=== PATIENT | female | born 1990 | race Caucasian/White ===

== ENCOUNTER 2020-06-17 06:18 | Inpatient (IN) | payer OTHER, BC, SELFPAY ==
[2020-06-17] VITALS (215 sets, daily range): BP systolic 51–141; BP diastolic 22–91; PULSE 68–136; TEMP 36.6–37.2; O2SAT 89–100; BMI 38.7
[2020-06-17 07:26] LABS: Basophils Percent Auto 0.2 % (0.2-1.2); Eosinophils Percent Auto 0.4 % (0-4.4); Hematocrit 32.3 % (37.0-47.0); Hemoglobin 10.6 g/dL (12.0-15.0); Immature Granulocyte Absolute 0.06 K/mm3 (0.00-0.031); Immature Granulocyte Percent A 0.6 % (0-0.5); Lymphocytes Absolute Auto 2.14 K/mm3 (0.9-3.2); Lymphocytes Percent Auto 21.9 % (18.3-44.2); Mean Corpuscular HGB Conc 32.8 g/dl (32-36); Mean Corpuscular Hemoglobin 27.2 pg (26-34); Mean Corpuscular Volume 82.8 fl (80-100); Mean Platelet Volume 11.4 fl (7.4-10.4); Monocytes Absolute Auto 0.5 K/mm3 (0.1-0.6); Monocytes Percent Auto 4.9 % (2.6-8.5); Platelet Count Result 181 k/mm3 (150-375); Red Cell Distribution Width 13.8 % (11.5-14.5); White Blood Count 9.8 K/mm3 (4.5-10.0)
[2020-06-17] MEDS: LACTATED RINGERS 1,000 ML 125 ML IV CONT ×3 (07:34→18:39)
[2020-06-17] MEDS: OXYTOCIN 30 UNITS/NS 500 ML 30 UNITS/500 ML BAG 6 UNITS IV CONT (07:36)
--- NOTE | 2020-06-17 08:06 | WPDOBADMIT ---
Obstetrics - Admit Note Admission Note: record reviewed. No pertinent additions to the history and/or any subsequent changes in the physical findings that are not consistent with the expected course of the were found. EIDOC Rueda /-3 attempt at AROM Additions to the history and/or subsequent changes in the physical findings follow. None.
[2020-06-17 08:19] LABS: HIV 1/2 Ab P24 Ag Result Negative (Negative)
--- NOTE | 2020-06-17 08:28 | WPDANESEPP ---
Anes - Eval Pre Procedure Procedure: labor epidural Date/Time: 06/17/20 08:28 Preop Diagnosis: pain during labor Pre Op Diagnosis: Induction of Labor Patient Data Age: 30 Gender: F Height: Weight: Last Vital Signs Pulse 77 06/17/20 08:15 BP 114/68 06/17/20 08:15 Allergies Allergy/AdvReac Type Severity Reaction Status Date / Time No Known Allergies Allergy Verified 05/24/20 15:34 Home Medications Medication Instructions Recorded Confirmed Type aspirin [Aspirin Low Dose] 162 mg PO DAILY 05/24/20 05/24/20 History diphenhydramine HCl [Benadryl] 25 mg PO HS PRN 05/24/20 05/24/20 History omeprazole 20 mg PO DAILY 05/24/20 05/24/20 History prenat.vits,andre,ulv-nvnl-drihy 1 tablet PO DAILY 05/24/20 05/24/20 History [ #2] Laboratory Tests 06/17/20 06/17/20 06/17/20 07:14 07:14 07:14 WBC 9.8 K/mm3 K/mm3 (4.5-10.0) RBC 3.90 M/mm3 L M/mm3 (4.2-5.4) Hgb 10.6 g/dL L g/dL (12.0-15.0) Hct 32.3 % L % (37.0-47.0) MCV 82.8 fl fl (80-100) MCH 27.2 pg pg (26-34) MCHC 32.8 g/dl g/dl (32-36) RDW 13.8 % % (11.5-14.5) Plt Count 181 k/mm3 k/mm3 (150-375) MPV 11.4 fl H fl (7.4-10.4) Immature Gran % (Auto) 0.6 % H % (0-0.5) Neut % (Auto) 72.0 % % (45.5-73.1) Lymph % (Auto) 21.9 % % (18.3-44.2) Lares % (Auto) 4.9 % % (2.6-8.5) Eos % (Auto) 0.4 % % (0-4.4) Baso % (Auto) 0.2 % % (0.2-1.2) Lymph # (Auto) 2.14 K/mm3 K/mm3 (0.9-3.2) Lares # (Auto) 0.5 K/mm3 K/mm3 (0.1-0.6) Eos # (Auto) 0.0 K/mm3 K/mm3 (0-0.3) Baso # (Auto) 0.0 K/mm3 K/mm3 (0.0-0.1) Abs Immat Gran (auto) 0.06 K/mm3 H K/mm3 (0.00-0.031) Absolute Neuts (auto) 7.0 K/mm3 H K/mm3 (1.3-6.7) Absolute Nucleated RBC 0.0 K/mm3 K/mm3 (0.0-0.012) Nucleated RBC % 0.0 % % (0.0-0.2) RPR Pending Hepatitis C Ab Screen HIV 1&2 Ab/P24 Ag 4thGn Negative (Negative) 06/17/20 07:14 WBC RBC Hgb Hct MCV MCH MCHC RDW Plt Count MPV Immature Gran % (Auto) Neut % (Auto) Lymph % (Auto) Lares % (Auto) Eos % (Auto) Baso % (Auto) Lymph # (Auto) Lares # (Auto) Eos # (Auto) Baso # (Auto) Abs Immat Gran (auto) Absolute Neuts (auto) Absolute Nucleated RBC Nucleated RBC % RPR Hepatitis C Ab Screen Pending HIV 1&2 Ab/P24 Ag 4thGn Patient hx anesthesia problems: none Family hx anesthesia problems: none PMFSH Family History Family History Father Colon cancer Grandparent Colon cancer Diabetes mellitus Rectal adenocarcinoma FH: kidney cancer Hypertension Skin cancer Mother Acute myocardial infarction Diabetes type 2, uncontrolled Other Parents Social History Social History Smoking status: Never smoker Substance use: never Spiritual care concerns: No Exam Day of Procedure 06/17/20 08:28 Patient weight: normal Heart: regular rate and rhythm Lungs: clear to auscultation and normal air movement Neurological: alert and oriented
[2020-06-17 08:46] LABS: Hepatitis C Virus Antibody Negative (Negative)
[2020-06-17] MEDS: ONDANSETRON INJ 4 MG/2 ML VIAL IV PUSH ×2 (12:22→18:39)
[2020-06-17] MEDS: fentaNYL CITRATE INJ (*CRX) 100 MCG/2 ML VIAL IV PUSH (12:22)
[2020-06-18] VITALS (88 sets, daily range): BP systolic 79–133; BP diastolic 40–112; PULSE 33–152; RESP 13–20; TEMP 36.3–37.5; O2SAT 80–100
[2020-06-18] MEDS: ONDANSETRON INJ 4 MG/2 ML VIAL IV PUSH (00:21)
--- NOTE | 2020-06-18 02:40 | PM.IMHP ---
H&P: HPI History of Present Illness Date/Time: 06/18/20 02:40 Chief Complaint: elective induction of labor, failure to progress Narrative: Alayna Steele is a 30 year old female who presented today for elective induction of labor, Pt has been complete and pushed for almost 2 hours without descent. 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 Afebrile Review of Systems Review of Systems: All systems reviewed & are unremarkable except as noted in HPI and below PMFSH Family History Family History Father Colon cancer Grandparent Colon cancer Diabetes mellitus Rectal adenocarcinoma FH: kidney cancer Hypertension Skin cancer Mother Acute myocardial infarction Diabetes type 2, uncontrolled Other Parents Social History Social History Smoking status: Never smoker Substance use: never Spiritual care concerns: No Meds Home Medications and Allergies Home Medications Medication Instructions Recorded Confirmed Type aspirin [Aspirin Low Dose] 162 mg PO DAILY 05/24/20 05/24/20 History diphenhydramine HCl [Benadryl] 25 mg PO HS PRN 05/24/20 05/24/20 History omeprazole 20 mg PO DAILY 05/24/20 05/24/20 History prenat.vits,andre,jot-yuri-wwzat 1 tablet PO DAILY 05/24/20 05/24/20 History [ #2] Allergies Allergy/AdvReac Type Severity Reaction Status Date / Time No Known Allergies Allergy Verified 05/24/20 15:34 Vital Signs Vital Signs - 24 hr 06/17/20 07:05 06/17/20 07:15 06/17/20 07:30 Temperature Pulse Rate 112 H 96 104 H Blood Pressure 120/88 105/75 118/74 Pulse Oximetry 06/17/20 07:46 06/17/20 08:00 06/17/20 08:15 Temperature Pulse Rate 93 90 77 Blood Pressure 114/60 111/66 114/68 Pulse Oximetry 06/17/20 08:30 06/17/20 08:46 06/17/20 09:00 Temperature 36.8 C Pulse Rate 90 90 91 Blood Pressure 110/63 108/63 109/70 Pulse Oximetry 06/17/20 09:17 06/17/20 09:30 06/17/20 09:46 Temperature Pulse Rate 80 77 82 Blood Pressure 92/68 L 96/55 L 104/62 Pulse Oximetry 06/17/20 10:16 06/17/20 10:30 06/17/20 11:01 Temperature 36.8 C Pulse Rate 89 86 122 H Blood Pressure 116/70 109/68 92/68 L Pulse Oximetry 06/17/20 11:15 06/17/20 11:31 06/17/20 11:45 Temperature Pulse Rate 82 87 88 Blood Pressure 121/71 107/65 112/66 Pulse Oximetry 06/17/20 12:01 06/17/20 12:15 06/17/20 12:30 Temperature 36.8 C Pulse Rate 108 H 90 92 Blood Pressure 70/48 L 108/73 112/63 Pulse Oximetry 06/17/20 12:45 06/17/20 13:00 06/17/20 13:15 Temperature Pulse Rate 74 78 88 Blood Pressure 117/67 111/71 107/70 Pulse Oximetry 06/17/20 13:26 06/17/20 13:27 06/17/20 13:29 Temperature Pulse Rate 97 91 Blood Pressure 110/91 H 112/65 Pulse Oximetry 100 06/17/20 13:30 06/17/20 13:31 06/17/20 13:33 Temperature Pulse Rate 86 98 Blood Pressure 113/62 105/76 Pulse Oximetry 100 06/17/20 13:36 06/17/20 13:38 06/17/20 13:41 Temperature Pulse Rate 97 114 H Blood Pressure 121/71 137/81 141/68 H Pulse Oximetry 100 100 06/17/20 13:44 06/17/20 13:46 06/17/20 13:48 Temperature Pulse Rate 80 92 80 Blood Pressure 109/60 108/63 112/58 L Pulse Oximetry 100 06/17/20 13:51 06/17/20 13:53 06/17/20 13:56 Temperature Pulse Rate 81 90 97 Blood Pressure 107/52 L 108/54 L 105/53 L Pulse Oximetry 100 100 06/17/20 13:58 06/17/20 14:00 06/17/20 14:01 Temperature Pulse Rate 89 102 H Blood Pressure 107/63 111/58 L Pulse Oximetry 100 06/17/20 14:03 06/17/20 14:05 06/17/20 14:06 Temperature Pulse Rate 95 84 Blood Pressure 107/60 109/58 L Pulse Oximetry 100 06/17/20 14:08 06/17/20 14:10 06/17/20 14:11 Temperature Pulse Rate 72 83 Blood Pressure 96/64 L 105/55 L Pulse Oximetry 100 06/17/20 14:
--- NOTE | 2020-06-18 03:47 | WPDANESEFPP ---
Anes - Eval Final PreProcedure Day of Procedure 06/18/20 03:47 Patient weight: obese Heart: regular rate and rhythm Lungs: clear to auscultation and normal air movement Airway: Mallampati scale class II Neurological: alert and oriented Last oral intake: >/= 8 hours ASA classification: II Emergent: no Anesthetic plan: proceed Anesthesia type and monitoring: regional epidural and standard monitoring Informed Consent: The patient's anesthetic plan and its attendant risks and benefits were discussed with the patient/family/POA. Questions were solicited and answers provided to the satisfaction of the patient/family/POA.
[2020-06-18] MEDS: ceFAZolin 2 GM/D5W 50 ML 2 GM/50 ML BAG IVPB (04:07)
--- NOTE | 2020-06-18 04:54 | P.OP_ITS ---
Procedure Note - Detailed Date of procedure: 06/18/20 Pre-op diagnosis: Induction of Labor failure to descend Post-op diagnosis: same (malposition of the head) Procedure performed: low-transverse delivery Description of procedure: The patient was taken the operating room. She was prepped and draped in the dorsal supine position with leftward tilt after induction of spinal anesthetic. When anesthesia was found to be adequate a low- transverse skin incision was made and carried down to the level the fascia with the knife. The fascial incision was made at the midline with a scalpel. The fascial incision was extended laterally with Rao scissors. The fascia was tented upward superior and inferior with Yoni clamps. The rectus muscles were dissected off bluntly. The rectus muscles at the midline. The preperitoneal fat was dissected bluntly at the superior aspect of the separate the rectus muscles. The peritoneal cavity was entered bluntly in the same area. The peritoneal incision was extended superior and inferior with good visualization of bladder. Bladder blade was inserted. A low-transverse incision was made on the uterus with the scalpel. It was carried down the level of the amniotic cavity with a knife. The amniotic cavity bluntly. The uterine incision was made laterally with blunt traction. The infant was delivered. The cord was clamped and cut. The infant was handed off to waiting pediatric staff. Cord bloods were obtained. The placenta was removed manually. The uterus was exteriorized. Uterus cleared of all clots and debris. Uterus closed in 0 Vicryl in a running locked fashion. An imbricating layer of 0 Vicryl was also placed on the to bolster the closure. The uterus was returned to the abdomen. The gutters were cleared of all clots and debris. The fascia was closed 0 Vicryl in a running fashion. Subcutaneous tissue was irrigated and bleeding areas were cauterized. The skin was closed with subcuticular absorbable sarmad. The incision was covered with derma stephens. The patient tolerated the procedure well. She was taken recovery room stable condition. Sponge, lap, needle counts were correct x2. Anesthesia: spinal Surgeon: Colt Olvera MD Drains: No Packing: No Pathology: none sent Complications: No immediate complications Condition: stable Disposition: floor Findings: Normal maternal anatomy. Average size with normal Apgars. LOP head
[2020-06-18] MEDS: DEXTROSE 5%/0.45% SOD CHL 1,000 ML 125 ML IV CONT (11:38)
--- NOTE | 2020-06-18 14:34 | OBPPTRN ---
Addendum entered by Dixie Dai RN 06/18/20 14:34: @ 0751 Original Note: Patient transferred to post room #288 via stretcher. Support person present. Oriented to unit, room, information board, rooming in, admission packet and security measures. Patient verbalizes understanding.
[2020-06-18] MEDS: HYDROcodone/acetaminophen (*CRX) 5-325 MG TABLET 1 TAB PO (17:32)
[2020-06-18] MEDS: DOCUSATE SODIUM 100 MG CAPSULE PO (17:34)
[2020-06-18] MEDS: IBUPROFEN 600 MG TABLET PO (19:35)
[2020-06-19 01:00] VITALS: BP 94/56; PULSE 84; RESP 16; TEMP 36.4
[2020-06-19 04:00] VITALS: BP 102/63; PULSE 91; RESP 16; TEMP 36.2
[2020-06-19] MEDS: HYDROcodone/acetaminophen (*CRX) 5-325 MG TABLET 1 TAB PO ×4 (04:14→18:40)
[2020-06-19] MEDS: IBUPROFEN 600 MG TABLET PO ×2 (04:14→18:41)
--- NOTE | 2020-06-19 04:44 | PM.OBPNVD ---
OB - PN: Subj Subjective Date/time seen: 06/19/20 04:44 Patient comments: no complaints, pain well controlled, tolerating diet and flatus present baby status: doing well OB - PN: Obj Data Labs CBC & Chem 7: 06/17/20 07:14 OB - PN A/P Plan day: 1 Plan: routine care Time Spent With Patient Time: Total time spent is greater than 50% in coordination of care (as documented) at patient's floor/unit and/or counseling patient: Time with patient: less than 15 minutes Review of Systems Review of Systems: All systems reviewed & are unremarkable except as noted in HPI and below Exam Narrative: Exam Narrative: Fundus firm. Vaginal flow controlled. Incision dry and intact. Negative homans. No redness, warmth, or pain of lower ext. Const: General: comfortable Chest: Breast/axilla inspection: normal inspection of the breasts Resp: Effort & Inspection: normal respiratory effort Auscultation: clear to auscultation bilaterally Cardio: Rate: regular rate GI: GI Palp: Yes Soft to palpation Psych: Appearance: grossly normal Affect: normal affect Attitude: cooperative Thought content: Yes Normal thought content present Judgement: Good judgement present (Psych)
[2020-06-19 05:43] LABS: Basophils Percent Auto 0.1 % (0.2-1.2); Eosinophils Absolute Auto 0.1 K/mm3 (0-0.3); Eosinophils Percent Auto 0.5 % (0-4.4); Hematocrit 25.8 % (37.0-47.0); Hemoglobin 8.5 g/dL (12.0-15.0); Immature Granulocyte Absolute 0.11 K/mm3 (0.00-0.031); Immature Granulocyte Percent A 0.7 % (0-0.5); Lymphocytes Absolute Auto 2.09 K/mm3 (0.9-3.2); Lymphocytes Percent Auto 12.5 % (18.3-44.2); Mean Corpuscular HGB Conc 32.9 g/dl (32-36); Mean Corpuscular Hemoglobin 27.7 pg (26-34); Mean Platelet Volume 11.1 fl (7.4-10.4); Monocytes Absolute Auto 0.9 K/mm3 (0.1-0.6); Monocytes Percent Auto 5.4 % (2.6-8.5); Neutrophils Absolute Auto 13.5 K/mm3 (1.3-6.7); Neutrophils Percent Auto 80.8 % (45.5-73.1); Platelet Count Result 151 k/mm3 (150-375); Red Blood Count 3.07 M/mm3 (4.2-5.4); White Blood Count 16.8 K/mm3 (4.5-10.0)
--- NOTE | 2020-06-19 07:48 | WPDANLDNPN2 ---
Anes-Prog Note L&D-Neuraxial Date/Time: 06/19/20 07:48 Neuraxial medications: epidural PF morphine Opiod-related complaints: none Patient feedback: Patient satisfied with post-operative pain management.
--- NOTE | 2020-06-19 07:48 | WPDANLDPN2 ---
Anes-Prog Note L&D Date/Time: 06/19/20 07:48 Comfortable throughout: section Neuraxial method: epidural Epidural/Spinal procedure site: clean & non-tender Neuro status: Neuro function grossly intact. Cardiovascular status: normal Respiratory status: normal Airway patency: baseline Mental status: baseline Post-Op hydration status: normal Vital Signs: Last Vital Signs Temp 36.2 C L 06/19/20 04:00 Pulse 91 06/19/20 04:00 Resp 16 06/19/20 04:00 BP 102/63 06/19/20 04:00 Pulse Ox 99 06/18/20 19:19 Pain score (VAS): 2 I/O: Intake & Output 06/18/20 06/18/20 06/19/20 15:59 23:59 07:59 Intake Total 1000 800 Output Total 450 1150 1000 Balance -450 -150 -200 Post-procedural complaints: none Patient feedback: Patient satisfied with anesthetic care.
[2020-06-19 08:55] VITALS: BP 110/69; PULSE 92; RESP 18; TEMP 36.1; O2SAT 99
[2020-06-19] MEDS: MULTIVIT/MIN/PREN/FOL AC/IRON TABLET 1 TAB PO (08:55)
[2020-06-19] MEDS: DOCUSATE SODIUM 100 MG CAPSULE PO ×2 (08:55→16:17)
[2020-06-19] MEDS: POLYSACCHARIDE IRON COMPLEX 150 MG CAPSULE PO ×2 (08:55→16:17)
[2020-06-19 09:03] LABS: Rapid Plasma Reagin Reactive (NonReactive)
[2020-06-19] MEDS: PANTOPRAZOLE SOD SESQUIHYDRATE 20 MG TAB PO (13:24)
[2020-06-19] MEDS: ASPIRIN 81 MG ENTERIC TABLET 162 MG PO (13:25)
[2020-06-19] MEDS: SIMETHICONE 80 MG TAB.CHEW PO (18:42)
[2020-06-19 19:24] VITALS: BP 109/62; PULSE 79; RESP 18; TEMP 37.3; O2SAT 100
[2020-06-20] MEDS: IBUPROFEN 600 MG TABLET PO ×4 (00:52→22:41)
[2020-06-20] MEDS: SIMETHICONE 80 MG TAB.CHEW PO ×5 (00:52→22:41)
[2020-06-20] MEDS: PANTOPRAZOLE SOD SESQUIHYDRATE 20 MG TAB PO (07:54)
[2020-06-20] MEDS: POLYSACCHARIDE IRON COMPLEX 150 MG CAPSULE PO ×3 (07:54→16:14)
[2020-06-20] MEDS: MULTIVIT/MIN/PREN/FOL AC/IRON TABLET 1 TAB PO (07:54)
[2020-06-20] MEDS: DOCUSATE SODIUM 100 MG CAPSULE PO ×2 (07:54→16:15)
[2020-06-20] MEDS: ASPIRIN 81 MG ENTERIC TABLET 162 MG PO (07:54)
[2020-06-20 08:00] VITALS: BP 132/56; PULSE 75; RESP 18; TEMP 36.6
--- NOTE | 2020-06-20 08:09 | P.PNOB_ITS ---
OB - PN: Subj Subjective Date/time seen: 06/20/20 08:09 Patient comments: no complaints, pain well controlled, incisional pain, tolerating diet and flatus present OB - PN: Obj Data Labs CBC & Chem 7: 06/19/20 05:29 Labs: Laboratory Results - last 24 hr 06/17/20 07:14 RPR Reactive A OB - PN A/P Plan day: 2 Plan: routine care Comments: POD#2 LTCS - no problems, Time Spent With Patient Time: Total time spent is greater than 50% in coordination of care (as d ocumented) at patient's floor/unit and/or counseling patient: Exam Const: General: comfortable, no acute distress and alert Resp: Effort & Inspection: normal respiratory effort Auscultation: no crackles, no rales and no rhonchi Cardio: Rate: regular rate Heart sounds: no click, no murmurs and no rubs GI: Inspection: non-distended GI Palp: No Tenderness to palpation present (GI) Auscultation: normal bowel sounds Other: Incision - CDI Extrem: General: normal to inspection, no pedal edema and no calf tenderness
--- NOTE | 2020-06-20 09:05 | PC.NURSE ---
Mother called out for assist with feeding. Consulted with patient, reports has had some difficulties with latching and is using the nipple shield for some feeding. Mother has nipple discomfort with latch during most of the feeding. Both nipples are reddened and scabbed bilat., nipple care reviewed and lanolin provided. Advised warm moist heat for 10 minutes then use gel pads provided. Discussed infant weight loss and ICP suggestion to supplement 15-20 mls EBM/formula after each feeding. Mother is upset with supplementation, reviewed this may be short term and incorrect latch may impact infant intake. Suggested working with deep latch and pumping. Reviewed feeding cues, frequencies, duration of feedings, feeding elimination flow sheet, and signs of adequate intake. Demonstrated stimulation techniques to wake for feeding. Assisted with to breast. Reviewed positioning/alignment in cross cradle, holding breast in U hold and guided asymmetrical latch on. was able to latch correctly within a few attempts without shield. Infant nursed eagerly, with steady draws and frequent swallowing noted. Reviewed signs of a correct latch, effective nursing and suck swallow ratio. Infant was able to maintain latch. Mother reported tenderness at times, had slipped to shallow latch. Demonstrated how to adjust latch more deeply while feeding. Mother quickly reports she can feel is latched more deeply and has minimal tenderness. Suggested to stimulate while feeding to keep infant awake and nursing effectively for increased stimulation and increased intake. Instructed mother to call out for RN assistance if she is unable to latch for feeding or she has discomfort with nursing. Instructed feeding should be initiated three hours from start of last feeding or if feeding cues are noted before. Mother voiced understanding of information shared.
--- NOTE | 2020-06-20 09:45 | PC.NURSE ---
Breast pump provided due to latch issues and weight loss. Instructions given on breast pump care and usage, pumping schedule, nipple care, and collection and storage of breast milk. Encouraged saih-[id number], breast massage and manual expression to stimulate supply. Assessed patient for correct flange size, placement and draw. Patient verbalizes and demonstrates understanding of instructions.
--- NOTE | 2020-06-20 12:10 | PC.NURSE ---
Mother called out for assist with feeding. Demonstrated stimulation techniques to wake for feeding. Assisted with infant to breast, reviewing pillow for support. Reviewed positioning/alignment in cross cradle, holding breast in U hold and guided asymmetrical latch on. was able to latch correctly within a few attempts, without shield. Infant nursed eagerly, with steady draws and frequent swallowing noted. Reviewed signs of a correct latch, effective nursing and suck swallow ratio. was able to maintain latch. Mother reported tenderness at times, had slipped to shallow latch. Demonstrated how to adjust latch more deeply while feeding. Mother quickly reports she can feel is latched more deeply and has minimal tenderness. Suggested to stimulate infant while feeding to keep awake and nursing effectively for increased stimulation and increased intake. Instructed mother to call out for RN assistance if she is unable to latch infant for feeding or she has discomfort with nursing. Instructed feeding should be initiated three hours from start of last feeding or if feeding cues are noted before. Mother voiced understanding of information shared. FOB will supplement after feeding and mother will pump. Advised to give EBM as part of next feeding.
--- NOTE | 2020-06-20 14:04 | PC.NURSE ---
Patient viewed the discharge video Mother & Baby Care, The First Two Weeks . Patient was given the opportunity and encouraged to ask questions. Patient verbalized understanding of information shared and has been given the mother/baby guide for home reference.
[2020-06-20] MEDS: TETANUS,DIPHTHERIA,AC PERTUSSIS ADULT (0.5 ML) BOOSTRIX IM (19:00)
[2020-06-20 21:11] VITALS: BP 119/73; PULSE 87; RESP 18; TEMP 37.1
--- NOTE | 2020-06-21 08:00 | PM.OBPNVD ---
OB - PN: Subj Subjective Date/time seen: 06/21/20 08:00 Patient comments: no complaints, pain well controlled, incisional pain, tolerating diet and flatus present OB - PN: Obj Data Labs CBC & Chem 7: 06/19/20 05:29 OB - PN A/P Plan day: 2 Plan: routine care Comments: POD#2 LTCS - no problems, d/c Time Spent With Patient Time: Total time spent is greater than 50% in coordination of care (as documented) at patient's floor/unit and/or counseling patient: Exam Const: General: comfortable, no acute distress and alert Resp: Effort & Inspection: normal respiratory effort Auscultation: no crackles, no rales and no rhonchi Cardio: Rate: regular rate Heart sounds: no click, no murmurs and no rubs GI: Inspection: non-distended GI Palp: No Tenderness to palpation present (GI) Auscultation: normal bowel sounds Other: Incision - CDI Extrem: General: normal to inspection, no pedal edema and no calf tenderness
--- NOTE | 2020-06-21 08:01 | PM.OBDSVD ---
DS: Admitting Diagnosis Admitting Diagnosis Admitting Diagnosis: term DS: Discharge Diagnosis Discharge Diagnosis (1) delivery delivered: Code(s): O82 - Encounter for delivery without indication Status: Acute OB - DS: Summary OB Procedures : Ultrasound OB Procedures Intrapartum: OB Procedures: : None Peripartum Data Infant Delivery Method: Section Procedures: Procedures Operation Date: 06/18/20 02:40 Actual Procedures Side Surgeon p Section Colt Olvera MD Time Spent with Patient Time attestation: Total time spent providing and/or coordinating discharge services: DS: Data Data Completed and Pending Pending studies at discharge: Pending at discharge 06/18/20 04:25 Surgical [PTH] Routine Discharge Plan Discharge Attending physician on discharge: Colt Olvera Discharging Clinician: Colt Olvera Patient Disposition: Home, Self-Care Activity: pelvic rest Diet: regular Patient Instructions: Antibiotic Form Stand Alone Forms: General Discharge Information Follow-up/Referrals: Colt Olvera MD [Physician] - Discharge Medications: New hydrocodone-acetaminophen 5-325 mg tablet 1 - 2 tablet PO Q4H PRN (Reason: pain) Qty: 25 RF: 0 Continued aspirin [Aspirin Low Dose] 81 mg Tablet,Delayed Release (Dr/Ec) 162 mg PO DAILY RF: 0 diphenhydramine HCl [Benadryl] 25 mg Capsule 25 mg PO HS PRN (Reason: Insomnia) RF: 0 omeprazole 20 mg Capsule,Delayed Release(Dr/Ec) 20 mg PO DAILY RF: 0 #2 Tablet 1 tablet PO DAILY RF: 0 Date of admission: 06/17/20 06:18 Primary Care Provider: Izzy,Monica Admitting Provider: Colt Olvera Attending physician on admission: Colt Olvera Condition: Stable
--- NOTE | 2020-06-21 08:30 | PC.NURSE ---
Consult with pt., mother reports lost more weight and is now supplementing as much as infant will take after . Mother continues to pump without difficulties or discomfort. Infant will eagerly nipple from bottle. Parents report mother will continue to put infant to breast until her milk is in and then pump and bottle feed. Mother reports feeling stressed with latch and weight loss. Reviewed may be more awake and eagerly latching within a few days, latch may be less stressful and she may be more comfortable when infant begins to gain weight. Mother has a Medela pump for home use.
[2020-06-21 08:45] VITALS: BP 109/63; PULSE 82; RESP 18; TEMP 36.7; O2SAT 100
[2020-06-21] MEDS: PANTOPRAZOLE SOD SESQUIHYDRATE 20 MG TAB PO (08:52)
[2020-06-21] MEDS: SIMETHICONE 80 MG TAB.CHEW PO ×2 (08:52→15:55)
[2020-06-21] MEDS: DOCUSATE SODIUM 100 MG CAPSULE PO ×2 (08:52→15:56)
[2020-06-21] MEDS: IBUPROFEN 600 MG TABLET PO ×2 (08:52→15:56)
[2020-06-21] MEDS: ASPIRIN 81 MG ENTERIC TABLET 162 MG PO (08:52)
[2020-06-21] MEDS: POLYSACCHARIDE IRON COMPLEX 150 MG CAPSULE PO ×2 (08:52→15:56)
[2020-06-21] MEDS: MULTIVIT/MIN/PREN/FOL AC/IRON TABLET 1 TAB PO (08:52)
[2020-06-21 20:00] VITALS: BP 114/68; PULSE 79; PULSE 82; RESP 18; TEMP 36.6; O2SAT 100
[2020-06-22 08:00] VITALS: BP 118/65; PULSE 66; RESP 18; TEMP 36.9; O2SAT 100
--- NOTE | 2020-06-22 08:08 | PM.OBPNVD ---
OB - PN: Subj Subjective Date/time seen: 06/22/20 08:08 Patient comments: no complaints, pain well controlled, incisional pain, tolerating diet and flatus present OB - PN: Obj Data Labs CBC & Chem 7: 06/19/20 05:29 OB - PN A/P Plan day: 3 Plan: routine care, discharge home and other Comments: Incision check in one week. Given precautions Time Spent With Patient Time: Total time spent is greater than 50% in coordination of care (as documented) at patient's floor/unit and/or counseling patient: Exam Const: General: comfortable, no acute distress and alert Resp: Effort & Inspection: normal respiratory effort Auscultation: no crackles, no rales and no rhonchi Cardio: Rate: regular rate Heart sounds: no click, no murmurs and no rubs GI: Inspection: non-distended GI Palp: No Tenderness to palpation present (GI) Auscultation: normal bowel sounds Other: Incision - CDI Extrem: General: normal to inspection, no pedal edema and no calf tenderness
[2020-06-22] MEDS: IBUPROFEN 600 MG TABLET PO (09:07)
[2020-06-22] MEDS: PANTOPRAZOLE SOD SESQUIHYDRATE 20 MG TAB PO (09:07)
[2020-06-22] MEDS: ASPIRIN 81 MG ENTERIC TABLET 162 MG PO (09:07)
[2020-06-22] MEDS: DOCUSATE SODIUM 100 MG CAPSULE PO (09:07)
[2020-06-22] MEDS: MULTIVIT/MIN/PREN/FOL AC/IRON TABLET 1 TAB PO (09:07)
[2020-06-22] MEDS: POLYSACCHARIDE IRON COMPLEX 150 MG CAPSULE PO (09:08)
--- NOTE | 2020-06-22 09:45 | PC.NURSE ---
Consult with pt., mother continue to put to breast for most feedings, mother will pass off to FOB and he will supplement as much as infant desires and mother will pump. Mother is pumping without difficulties/discomfort. Mother's plans are to discontinue putting infant to breast once her milk is in and she will only pump and bottle feed. Mother feels is more awake and eagerly nippling bottle. Reviewed breast pump care and usage, pumping schedule, nipple care, and collection and storage of breast milk. Encouraged [id number], breast massage and manual expression to stimulate supply. Mother is feeding as required and waking infant to feed if needed. Infant is currently meeting outcomes for weight, output, jaundice and feeding frequencies. Mother states she feels confident to continue current feeding plan at home. Reviewed transition to breast milk, signs of adequate intake, and engorgement/relief. Instructed to call ICP if intake/output less than required. Reviewed regular medications mother is taking. Information provided per Shanika. Reviewed community resources on the [employer] website and in the Mom/Baby guide. Information on outpatient services provided. Mother has no further questions at this time.
[2020-06-22 12:11] LABS: Treponema pallidum Ab FTA ABS Reactive (Nonreactive)
--- NOTE | 2020-07-10 09:35 | PM.OBDSVD ---
DS: Admitting Diagnosis Admitting Diagnosis Admitting Diagnosis: term DS: Discharge Diagnosis Discharge Diagnosis (1) delivery delivered: Code(s): O82 - Encounter for delivery without indication Status: Acute (2) Post-op pain: Code(s): G89.18 - Other acute postprocedural pain Status: Acute OB - DS: Summary OB Procedures : None OB Procedures Intrapartum: OB Procedures: : None Peripartum Data Delivery Method: Section Procedures: Procedures Operation Date: 06/18/20 02:40 Actual Procedures Side Surgeon p Section Colt Olvera MD Time Spent with Patient Time attestation: Total time spent providing and/or coordinating discharge services: DS: Data Data Completed and Pending Completed studies during hospitalization: Pending at discharge 06/18/20 04:25 Surgical [PTH] Routine Discharge Plan Discharge Attending physician on discharge: Colt Olvera Consulting providers: Tamara Gray ; Marielena Ventura ; Jarvis Anderson Discharging Clinician: Colt Olvera Patient Disposition: Home, Self-Care Activity: pelvic rest Diet: regular Discharge Instructions: Education: Mom and Baby Guide and Preeclampsia Handout Given to: Mother Follow-Up: Call your delivering provider's office for an appointment to be seen in: 1 Week Mom and baby should come to the [facility] for the follow-up appointment. Appointment Date/Time: June 24, 2020 at 10:00 am What to expect at your follow-up visit: Physical Assessment Call [phone] if you are unable to keep your appointment time. BREAST CARE: * Wear a snug supportive bra. * For engorgement discomfort: Breast Feeding: * Apply warm moist washcloths * Express milk as needed to relieve engorgement * Wear loose clothing * For sore nipples: * Identify correct latch-on * Apply warm moist washcloths before and after nursing * Air dry nipples after nursing * May apply Lansinoh cream to nipples ABDOMINAL INCISION: (if applicable) * Allow incision to air dry * Do NOT use lotions for powders on your incision * When showering, allow soap and water to run over the incision, but do not wash incision EPISIOTOMY/PERINEAL CARE: * Until bleeding stops, use your latasha bottle after urinating * Change your pad frequently throughout the day * You may take sitz baths several times a day (fill your bathtub with warm water and soak for 20 minutes.) Do NOT bathe in the water * No tub baths until seen by your physician - You may shower ACTIVITY: * Rest as much as possible. * Do not exercise or lift anything heavier than your baby (such as laundry or other children.) * Avoid stairs or driving as much as possible. * Do not put anything into the vagina. No douching, tampons, or sexual activity until seen by physician. NOTIFY PHYSICIAN IF YOU HAVE ANY QUESTIONS OR IF ANY OF THE FOLLOWING SYMPTOMS OCCUR: * If your incision becomes red, swollen, or more painful than what you have experienced in the hospital. * If your vaginal bleeding becomes foul smelling. * If your vaginal bleeding becomes more heavy than a period or if your bleeding changes from pink to bright red. However, you may pass an occasional walnut-sized clot once or twice for the first week . * If you experience a sharp, shooting pain in you calves. * If you discover a hard, reddened area on your breast or if you experience flu-like symptoms. DIET: * Eat regular, well-balanced meals. * Drink plenty of fluids daily. If , drink to thirst. Stand Alone Forms: General Discharge Information Follow-up/Referrals: Colt Olvera MD [Physician] - Discharge Medications: New hydrocodone-acetaminophen 5-325 mg tablet 1 - 2 tablet PO Q4H PRN (Reason: pain) Qty: 25 RF: 0 Continued
== END 2020-06-22 13:05 | disposition home or self-care (01) | DRG 788 ==
LOC: ANHLDR 06-18 04:29 → ANHOB2 06-18 07:56
PROVIDERS: Admitting Provider Obstetrics & Gynecology; Visit Provider Obstetrics & Gynecology
PROC: 10D00Z1 Extraction of Products of Conception, Low, Open Approach (ICD-10-PCS; CPT 59514; principal; 2020-06-18 02:40)
DX: O98.12 Syphilis complicating childbirth (principal); Z37.0 Single live birth; Z3A.39 39 weeks gestation of pregnancy; O61.0 Failed medical induction of labor; O36.8330 Maternal care for abnormalities of the fetal heart rate or rhythm, third trimester, not applicable or unspecified; O64.8XX0 Obstructed labor due to other malposition and malpresentation, not applicable or unspecified; O99.214 Obesity complicating childbirth; E66.9 Obesity, unspecified
CPT/HCPCS: 36415; 85025; 86592; 86703; 86780; 86803; 86850; 86900; 86901; 88307; 90715; A9270; G0432; J0690; J1100; J1885; J2274; J2405; J2590; J2704; J2795; J3010; J7120

== ENCOUNTER 2021-02-24 09:36 | Emergency (ER) | payer BC, SELFPAY ==
[2021-02-24 09:49] VITALS: BP 139/96; PULSE 101; RESP 14; TEMP 36.8; O2SAT 98
--- NOTE | 2021-02-24 10:22 | ED.URI ---
HPI - URI/Sore Throat General Chief Complaint: Upper Respiratory Infection Stated Complaint: runny nose cough headahe fatigue Source: patient and RN notes reviewed Mode of arrival: ambulatory History of Present Illness HPI Narrative: This is a 30-year-old female who presents to urgent care with complaints of a headache, stuffy nose, sinus and chest congestion, cough nonproductive that she has had for the last 4 days she also complains of right ear itching. Patient notes that she took [id number] medication for symptoms. The patient denies SOB, CP, palpitation, extremity numbness, lightheadedness, dizziness, constipation, diarrhea, chills, or fever. Related Data Home Medications Medication Instructions Recorded Confirmed omeprazole 20 mg PO DAILY 05/24/20 02/24/21 cetirizine [Zyrtec] 10 mg PO DAILY 02/24/21 02/24/21 estradiol-norgestimate 1 tablet PO DAILY 02/24/21 02/24/21 Allergies Allergy/AdvReac Type Severity Reaction Status Date / Time No Known Allergies Allergy Verified 02/24/21 10:11 Review of Systems Review of Systems: A 14 organ system Review of Systems was performed and pertinent positives included in the HPI, otherwise remaining ROS is negative. [facility] Family History Family History Father Colon cancer Grandparent Colon cancer Diabetes mellitus Rectal adenocarcinoma FH: kidney cancer Hypertension Skin cancer Mother Acute myocardial infarction Diabetes type 2, uncontrolled Other Parents Social History Social History Smoking status: Never smoker Substance use: never Spiritual care concerns: No Exam Narrative: GENERAL: This is a well-nourished, well-developed patient, in no apparent distress. HEAD: normocephalic, atraumatic. EYES: PERRL. Sclera clear/white. Vision is grossly intact. EARS: External ears normal, auditory canals clear and without drainage, TMs normal without perforation. Hearing grossly intact. NOSE: External nose normal with no obvious nasal discharge, nares without redness, no rhinorrhea. THROAT: Mucous membranes moist, posterior pharynx clear. NECK: Neck supple, non-tender without lymphadenopathy, masses or thyromegaly. CARDIOVASCULAR: Regular rate and rhythm without murmurs, gallops, or rubs. RESPIRATORY: Clear to auscultation. Breath sounds equal bilaterally. No wheezes, rales, or rhonchi. GASTROINTESTINAL: Abdomen soft, non-tender, nondistended. Bowel sounds are active. No hepato-splenomegaly, or palpable masses. No guarding. SKIN: warm, intact with no suspicious lesions or rash, good texture and turgor. NEURO: awake, alert, and oriented to person, place and time. There were no obvious focal neurologic abnormalities. Steady gait EXTREMITIES: Normal range of motion. No edema. No calf tenderness. Negative Homans sign bilaterally. BACK: Nontender without deformity or crepitance. No flank tenderness. Course Course Emergency Course: Utilize [id number] medication for symptoms of viral infection Vital Signs Vital signs: Vital Signs Temperature 98.2 F 02/24/21 09:49 Pulse Rate 101 H 02/24/21 09:49 Respiratory Rate 14 02/24/21 09:49 Blood Pressure 139/96 H 02/24/21 09:49 Pulse Oximetry 98 02/24/21 09:49 Temperature 98.2 F 02/24/21 09:49 Pulse Rate 101 H 02/24/21 09:49 Respiratory Rate 14 02/24/21 09:49 Blood Pressure 139/96 H 02/24/21 09:49 Pulse Oximetry 98 02/24/21 09:49 MDM - URI/Sore Throat Differential Diagnosis Differential diagnosis: Likely upper respiratory infection, sinusitis, viral infection, bronchitis and pharyngitis Discharge Plan Discharge Clinical Impression: Viral infection Patient Disposition: Home, Self-Care Condition: Stable Instructions: Antibiotic Form Additional Instructions: What care is needed at home? Ask your doctor what you need to do when you go home.
== END 2021-02-24 10:25 | disposition home or self-care (01) ==
PROVIDERS: Emergency Provider Nurse Practitioner
DX: B34.9 Viral infection, unspecified (principal); Z20.822 Contact with and (suspected) exposure to COVID-19
CPT/HCPCS: 87426; 99213; C9803; G0463

== ENCOUNTER 2021-08-15 09:50 | Outpatient (CLI) | payer BC, SELFPAY ==
[2021-08-15 19:31] LABS: Hematocrit 40.6 % (37.0-47.0); Hemoglobin 12.6 g/dL (12.0-15.0); Mean Corpuscular Hemoglobin 27.6 pg (26-34); Mean Corpuscular Volume 88.8 fl (80-100); Mean Platelet Volume 10.5 fl (7.4-10.4); Platelet Count Result 267 k/mm3 (150-375); Red Blood Count 4.57 M/mm3 (4.2-5.4); Red Cell Distribution Width 14.7 % (11.5-14.5); White Blood Count 7.5 K/mm3 (4.5-10.0)
[2021-08-15 19:38] LABS: Alanine Aminotransferase 29 U/L (4-35); Albumin Level 4.3 g/dL (3.5-5.1); Alkaline Phosphatase 146 U/L (38-126); Anion Gap 8 mmol/L (8-16); Aspartate Amino Transferase 33 U/L (14-36); Bilirubin,Total 0.4 mg/dL (0.2-1.3); Blood Urea Nitrogen 8 mg/dL (7-17); Calcium 9.1 mg/dL (8.4-10.2); Carbon Dioxide 25 mmol/L (22-30); Chloride 104 mmol/L (98-107); Cholesterol 182 mg/dL (0-200); Estimated Glomerular Filt Rate > 60; Glucose 105 mg/dL (65-110); HDL Direct 63 mg/dL; Potassium 3.8 mmol/L (3.4-5.0); Sodium 137 mmol/L (137-145); Triglycerides 138 mg/dL (<150)
[2021-08-15 19:49] LABS: LDL Cholesterol Direct 90 mg/dL
[2021-08-15 20:08] LABS: Thyroid Stimulating Hormone Reflex 0.246 uIU/mL (0.465-4.68)
[2021-08-15 22:50] LABS: Free T4 Free Thyroxine Reflex 1.15 ng/dL (0.78-2.19)
[2021-08-16 06:24] LABS: Total Triiodothyronine (T3) 1.63 NG/ML (0.97-1.69)
== END 2021-08-15 09:51 | disposition home or self-care (01) ==
PROVIDERS: PCP Family Medicine; Visit Provider Family Medicine
DX: O99.019 Anemia complicating pregnancy, unspecified trimester (principal); Z00.00 Encounter for general adult medical examination without abnormal findings; Z3A.00 Weeks of gestation of pregnancy not specified
CPT/HCPCS: 36415; 80053; 80061; 83036; 84439; 84443; 84480; 85027

== ENCOUNTER 2021-10-05 08:20 | Emergency (ER) | payer BC, SELFPAY ==
[2021-10-05 08:28] VITALS: BP 123/72; PULSE 95; RESP 20; TEMP 37.3; O2SAT 100
--- NOTE | 2021-10-05 09:38 | ED.URI ---
HPI - URI/Sore Throat General Chief Complaint: Upper Respiratory Infection Stated Complaint: Sore throat/fever Time Seen by Provider: 10/05/21 08:45 Source: patient Mode of arrival: ambulatory Limitations: no limitations History of Present Illness HPI Narrative: 31-year-old female presents with complaint of body aches, fatigue, sore throat, fever for 2 days. Is concerned that she has strep throat. Denies nausea vomiting diarrhea. Denies cough, congestion, chest pain or shortness of breath. Had COVID September 19. Tested negative 1 week later. States that her symptoms had completely resolved prior to these new symptoms started 2 days ago. All systems reviewed and negative except as noted above. Related Data Home Medications Medication Instructions Recorded Confirmed omeprazole 20 mg capsule,delayed 20 mg PO DAILY 05/24/20 10/05/21 release cetirizine 10 mg tablet (Zyrtec) 10 mg PO DAILY 02/24/21 10/05/21 estradiol-norgestimate 1 mg (15)/1 1 tablet PO DAILY 02/24/21 10/05/21 mg-0.09 mg (15) tablet Emtricitabine-Tenofivir 200 - 300 mg PO DAILY 10/05/21 10/05/21 Allergies Allergy/AdvReac Type Severity Reaction Status Date / Time No Known Allergies Allergy Verified 10/05/21 09:15 Review of Systems Review of Systems: CONSTITUTIONAL: Denies fever, chills, or sweats. Reports fatigue. EYES: Denies visual changes, redness, or discharge. ENT: Denies rhinorrhea, congestion. Reports sore throat. CARDIOVASCULAR: Denies chest pain, palpitations, or edema. RESPIRATORY: Denies cough or dyspnea. GASTROINTESTINAL: Denies abdominal pain, nausea, vomiting, or diarrhea. GENITOURINARY: Denies dysuria or hematuria. SKIN: Denies rash or itching. MUSCULOSKELETAL: Denies back pain, joint devyn. Reports myalgia. NEUROLOGIC: Denies headache, numbness, or weakness. PSYCHIATRIC: Denies anxiety or depression. All other systems reviewed are negative, except as documented in HPI. [facility] Past Medical History Medical History (Updated 10/05/21 @ 09:35 by Melinda Briseno NP) Allergies GERD (gastroesophageal reflux disease) IBS (irritable bowel syndrome) Family History Family History Father Colon cancer Grandparent Colon cancer Diabetes mellitus Rectal adenocarcinoma FH: kidney cancer Hypertension Skin cancer Mother Acute myocardial infarction Diabetes type 2, uncontrolled Other Parents Social History Social History Smoking status: Never smoker Substance use: never Spiritual care concerns: No Comments At time of signature, agree with nursing past medical, surgical, social and family history. There is no relevant family history pertinent to the presenting complaint. Exam Narrative: GENERAL: This is a well-nourished, well-developed patient, in no apparent distress. HEAD: normocephalic, atraumatic. EYES: PERRL. Sclera clear/white. Vision is grossly intact. EARS: External ears normal, auditory canals clear and without drainage, TMs normal without perforation. Hearing grossly intact. NOSE: External nose normal with no obvious nasal discharge, nares without redness, no rhinorrhea. THROAT: Mucous membranes moist erythema to posterior pharynx and bilateral tonsils. Tonsils enlarged 2+ bilaterally. No exudates. NECK: Neck supple, tender with enlarged cervical lymphadenopathy. No masses or thyromegaly. CARDIOVASCULAR: Regular rate and rhythm without murmurs, gallops, or rubs. RESPIRATORY: Clear to auscultation. Breath sounds equal bilaterally. No wheezes, rales, or rhonchi. SKIN: warm, Dry, intact with no suspicious lesions or rash, good texture and turgor. NEURO: awake, alert, and oriented to person, place and time. There were no obvious focal neurologic abnormalities. Course Course Level of Care: Express Care Visit Vital Signs Vital signs: Vital Signs Temperature 37.3 C
== END 2021-10-05 09:40 | disposition home or self-care (01) ==
PROVIDERS: Emergency Provider Nurse Practitioner Family; PCP Family Medicine
DX: J02.0 Streptococcal pharyngitis (principal); K21.9 Gastro-esophageal reflux disease without esophagitis; Z87.891 Personal history of nicotine dependence
CPT/HCPCS: 87081; 87804; 87880; 99213; G0463

== ENCOUNTER 2022-10-06 16:58 | Emergency (ER) | payer BC, SELFPAY ==
[2022-10-06 17:10] VITALS: BP 127/83; PULSE 98; RESP 18; TEMP 36.7; O2SAT 99
--- NOTE | 2022-10-06 17:43 | ED.GENADULT ---
HPI - General Adult General Chief complaint: Upper Respiratory Infection Stated complaint: Sore Throat Source: patient Mode of arrival: ambulatory Limitations: no limitations History of Present Illness HPI narrative: Patient presents for evaluation of sore throat for last 4 days. She has a history of recurrent strep pharyngitis in this feels similar. She did have about strep earlier this year. She has a productive cough of thick green sputum. She denies any shortness of breath. No fever, chills, nausea, vomiting. No recent sick contacts to her knowledge. She does use a marijuana-containing vape product. No additional complaints or concerns. Related Data Home Medications Medication Instructions Recorded Confirmed omeprazole 20 mg capsule,delayed 20 mg PO DAILY 05/24/20 10/06/22 release cetirizine 10 mg tablet (Zyrtec) 10 mg PO DAILY 02/24/21 10/06/22 estradiol-norgestimate 1 mg (15)/1 1 tablet PO DAILY 02/24/21 10/06/22 mg-0.09 mg (15) tablet Emtricitabine-Tenofivir 200 - 300 mg PO DAILY 10/05/21 10/06/22 Allergies Allergy/AdvReac Type Severity Reaction Status Date / Time No Known Allergies Allergy Verified 10/06/22 17:30 Review of Systems Review of Systems: CONSTITUTIONAL: Denies fever, chills, or sweats. EYES: Denies visual changes, redness, or discharge. ENT: Reports sore throat. denies rhinorrhea, congestion, or otalgia. CARDIOVASCULAR: Denies chest pain, palpitations, or edema. RESPIRATORY: Reports productive cough of thick green sputum. Denies shortness of breath GASTROINTESTINAL: Denies abdominal pain, nausea, vomiting, or diarrhea. GENITOURINARY: Denies dysuria or hematuria. SKIN: Denies rash or itching. MUSCULOSKELETAL: Denies back pain, joint pain, or myalgia. NEUROLOGIC: Denies headache, numbness, dizziness, or weakness. PSYCHIATRIC: Denies anxiety or depression. [facility] Past Medical History Medical History (Updated 10/06/22 @ 17:46 by Geremias Mendiola, SUSANNAH, ABRAHAM) Allergies GERD (gastroesophageal reflux disease) IBS (irritable bowel syndrome) Surgical History Surgical History No pertinent past surgical history Family History Family History Father Colon cancer Grandparent Colon cancer Diabetes mellitus Rectal adenocarcinoma FH: kidney cancer Hypertension Skin cancer Depression Cerebrovascular accident Mother Acute myocardial infarction Diabetes type 2, uncontrolled Heart disease Other Parents Social History Social History Smoking status: Never smoker Substance use: never Lack of Transportation: No Lack of Food: Never True Current Housing: I Have Housing Concerned About Future Housing: No Difficulty Paying Gas/Electric Bills: No Difficulty Paying for Meds: No Currently Unemployed: No Education: Master's Degree or Higher Difficulty w/ Childcare or Family Care: No Spiritual care concerns: No Exam Narrative: GENERAL: Well-appearing, well-nourished, and in no acute distress. HEAD: Normocephalic, atraumatic. EYES: PERRLA and EOMI. ENT: Nares clear, no rhinorrhea or epistaxis. Mucous membranes moist. Posterior pharyngeal erythema without exudate. Uvula is midline. Bilateral TMs pearly ryder nonbulging NECK: Supple. No adenopathy or masses. No carotid bruits or JVD CHEST: Clear to auscultation. No respiratory distress. No wheezes rales or rhonchi HEART: Regular rate and rhythm. No murmur heard. Normal peripheral pulses. ABDOMEN: Soft, nontender, nondistended, normal active bowel sounds. EXTREMITIES: Normal range of motion. No edema. SKIN: Warm, dry, no rash. NEURO: No focal deficits. Alert and oriented x3. PSYCH: Normal mood and affect. Course Course Emergency Course: This is a 32-year-old female who presented for evaluation of
== END 2022-10-06 17:45 | disposition home or self-care (01) ==
PROVIDERS: Emergency Provider Nurse Practitioner; PCP Family Medicine
DX: J02.8 Acute pharyngitis due to other specified organisms (principal); K21.9 Gastro-esophageal reflux disease without esophagitis
CPT/HCPCS: 87081; 87880; 99213; G0463

== ENCOUNTER 2023-03-01 11:18 | Emergency (ER) | payer BC, SELFPAY ==
--- NOTE | 2023-03-01 11:24 | ED.URI ---
HPI - URI/Sore Throat General Chief Complaint: Upper Respiratory Infection Stated Complaint: cough Time Seen by Provider: 03/01/23 11:24 Source: patient Mode of arrival: ambulatory Limitations: no limitations History of Present Illness HPI Narrative: Alayna is a 32-year-old female patient presenting to the clinic today with complaints of a sinus pressure, cough and nasal congestion x2 weeks. She reports she is coughing so much that she is giving herself a migraine headache. Denies any fever or chills. Reports she is blowing out green and yellow nasal drainage as well as coughing up green and yellow phlegm. MD elicited complaint: cough, rhinorrhea, nasal congestion and sinus pain Related Data Home Medications Medication Instructions Recorded Confirmed omeprazole 20 mg capsule,delayed 20 mg PO DAILY 05/24/20 03/01/23 release cetirizine 10 mg tablet (Zyrtec) 10 mg PO DAILY 02/24/21 03/01/23 estradiol-norgestimate 1 mg (15)/1 1 tablet PO DAILY 02/24/21 03/01/23 mg-0.09 mg (15) tablet Emtricitabine-Tenofivir 200 - 300 mg PO DAILY 10/05/21 03/01/23 Allergies Allergy/AdvReac Type Severity Reaction Status Date / Time No Known Allergies Allergy Verified 03/01/23 11:40 Review of Systems Review of Systems: Pertinent positives per HPI. Patient denies any fever, chills, rash, visual changes, dizziness, shortness of breath, chest pain, palpitations, nausea, vomiting, diarrhea, constipation, abdominal pain, or any urinary issues. [facility] Past Medical History Medical History Allergies GERD (gastroesophageal reflux disease) IBS (irritable bowel syndrome) Surgical History Surgical History No pertinent past surgical history Family History Family History Father Colon cancer Grandparent Colon cancer Diabetes mellitus Rectal adenocarcinoma FH: kidney cancer Hypertension Skin cancer Depression Cerebrovascular accident Mother Acute myocardial infarction Diabetes type 2, uncontrolled Heart disease Other Parents Social History Social History Smoking status: Never smoker Substance use: never Lack of Transportation: No Lack of Food: Never True Current Housing: I Have Housing Concerned About Future Housing: No Difficulty Paying Gas/Electric Bills: No Difficulty Paying for Meds: No Currently Unemployed: No Education: Master's Degree or Higher Difficulty w/ Childcare or Family Care: No Spiritual care concerns: No Comments At the time of my signature, I reviewed and agree with the nursing past medical, surgical, social, and family history. There is no relevant family history pertinent to the patient complaint. Exam Narrative: General: Well-developed, well nourished, in no apparent distress Head: Normocephalic, atraumatic Eyes: Pupils equally round and reactive to light bilaterally, EOM intact, sclera and conjunctive clear, no discharge, lids normal Ears: TMs intact and clear, ear canals clear, no drainage, grossly hearing normal. Nose: Nares patent, yellow nasal discharge, severe inflammation, maxillary facial sinus tenderness. Mouth: Oral pharynx without lesions or masses, good dentition, MMM. Postnasal drip Neck: Supple, trachea midline, no enlargement of anterior or posterior cervical nodes, no thyroid masses or goiter palpable. Cardio: Regular rate and rhythm, s1 and s2 normal, no murmur appreciated. Resp: Clear to auscultation bilaterally, no rhonchi, rales, wheezing or rubs Course Course Emergency Course: Portions of this record may have been created with voice recognition software. Level of Care: Express Care Visit Vital Signs Vital signs: Vital signs reviewed MDM - URI/Sore Throat MDM Narrative [facility]
[2023-03-01 11:25] VITALS: BP 135/78; PULSE 102; RESP 18; TEMP 36.7; O2SAT 100
== END 2023-03-01 11:38 | disposition home or self-care (01) ==
PROVIDERS: Emergency Provider Nurse Practitioner Family; PCP Family Medicine
DX: J01.90 Acute sinusitis, unspecified (principal); K21.9 Gastro-esophageal reflux disease without esophagitis
CPT/HCPCS: 99203; G0463

== ENCOUNTER 2023-03-14 08:23 | Emergency (ER) | payer BC, SELFPAY ==
[2023-03-14 08:49] VITALS: BP 120/74; PULSE 105; RESP 16; TEMP 36.6; O2SAT 97
--- NOTE | 2023-03-14 09:23 | ED.URI ---
HPI - URI/Sore Throat General Chief Complaint: Upper Respiratory Infection Stated Complaint: Cough/Left Flank Pain Time Seen by Provider: 03/14/23 09:10 Source: patient, RN notes reviewed and old records reviewed Mode of arrival: ambulatory Limitations: no limitations History of Present Illness HPI Narrative: 32 year old female who presents to [facility] care with complaints of continued loose cough with some pain to the left lateral rib area which is aggravated by cough. Patient was seen in this clinic 2 weeks ago and received antibiotic and steroid for her symptoms and then followed up with her PCP and received steroid taper at that time. Patient reports that she takes daily Zyrtec and has also been taking DayQuil. Patient reports that she has no ear pain, sinus pressure or any known fever. Patient states that she has been putting ice to her left chest, has not taken any OTC Tylenol or Ibuprofen for her discomfort. MD elicited complaint: cough and other (soreness left rib area from coughing) Pertinent past history: sinusitis and other (cough) Onset (ago): week(s) (2) Severity: moderate Able to tolerate fluids by mouth: Yes Exacerbating factors: other (cough) Treatments prior to arrival: other (ice to lateral rib area, Zyrtec, cold medication) Related Data Home Medications Medication Instructions Recorded Confirmed omeprazole 20 mg capsule,delayed 20 mg PO DAILY 05/24/20 03/14/23 release cetirizine 10 mg tablet (Zyrtec) 10 mg PO DAILY 02/24/21 03/14/23 estradiol-norgestimate 1 mg (15)/1 1 tablet PO DAILY 02/24/21 03/05/23 mg-0.09 mg (15) tablet Emtricitabine-Tenofivir 200 - 300 mg PO DAILY 10/05/21 03/14/23 Allergies Allergy/AdvReac Type Severity Reaction Status Date / Time No Known Allergies Allergy Verified 03/14/23 08:54 Review of Systems Review of Systems: CONSTITUTIONAL: Denies malaise, chills, sweats, or fever. EYES: Denies visual changes, redness, or discharge. ENT: Reports rhinorrhea, congestion, no sinus pain,no otalgia and no sore throat. CARDIOVASCULAR: Denies chest pain, palpitations, or edema, reports left lateral rib pain from coughing RESPIRATORY: Reports cough.? Denies dyspnea. GASTROINTESTINAL: Denies abdominal pain, nausea, vomiting, diarrhea SKIN: Denies rash or itching. MUSCULOSKELETAL: Denies myalgia. NEUROLOGIC: Denies headache. All systems reviewed & are unremarkable except as noted in HPI and below PMFSH Past Medical History Medical History Allergies GERD (gastroesophageal reflux disease) IBS (irritable bowel syndrome) Surgical History Surgical History No pertinent past surgical history Family History Family History Father Colon cancer Grandparent Colon cancer Diabetes mellitus Rectal adenocarcinoma FH: kidney cancer Hypertension Skin cancer Depression Cerebrovascular accident Mother Acute myocardial infarction Diabetes type 2, uncontrolled Heart disease Other Parents Social History Social History Smoking status: Never smoker Substance use: never Lack of Transportation: No Lack of Food: Never True Current Housing: I Have Housing Concerned About Future Housing: No Difficulty Paying Gas/Electric Bills: No Difficulty Paying for Meds: No Currently Unemployed: No Education: Master's Degree or Higher Difficulty w/ Childcare or Family Care: No Spiritual care concerns: No Comments At time of signature, agree with nursing past medical, surgical, social and family history. There is no relevant family history pertinent to the presenting complaint Exam Narrative: GENERAL: Well-appearing, well-nourished, and in no acute distress. HEAD: Normocephalic EYES: PERRLA, conjunctivae clear
== END 2023-03-14 09:32 | disposition home or self-care (01) ==
PROVIDERS: Emergency Provider Registered Nurse; PCP Family Medicine
DX: J06.9 Acute upper respiratory infection, unspecified (principal); R05.1 Acute cough; K21.9 Gastro-esophageal reflux disease without esophagitis
CPT/HCPCS: 99213; G0463

== ENCOUNTER 2023-07-11 08:43 | Outpatient (CLI) | payer BC, SELFPAY ==
[2023-07-11 19:04] LABS: Alanine Aminotransferase 24 U/L (6-35); Albumin Level 4.4 g/dL (3.5-5.1); Alkaline Phosphatase 115 U/L (38-126); Anion Gap 8 mmol/L (4-12); Aspartate Amino Transferase 53 U/L (14-36); Bilirubin,Total 0.6 mg/dL (0.2-1.3); Blood Urea Nitrogen 12 mg/dL (7-17); Calcium 9.8 mg/dL (8.4-10.2); Carbon Dioxide 25 mmol/L (22-30); Chloride 105 mmol/L (98-107); Cholesterol 214 mg/dL (0-200); Estimated Glomerular Filt Rate > 60; Glucose 84 mg/dL (65-110); HDL Direct 70 mg/dL; Potassium 3.8 mmol/L (3.4-5.0); Sodium 138 mmol/L (137-145); Triglycerides 99 mg/dL (<150)
[2023-07-11 19:15] LABS: LDL Cholesterol Direct 124 mg/dL
[2023-07-11 19:26] LABS: Thyroid Stimulating Hormone 0.409 uIU/mL (0.465-4.680)
[2023-07-11 19:35] LABS: Hematocrit 41.4 % (37.0-47.0); Hemoglobin 12.4 g/dL (12.0-15.0); Mean Corpuscular Hemoglobin 25.6 pg (26-34); Mean Corpuscular Volume 85.4 fl (80-100); Mean Platelet Volume 10.6 fl (7.4-10.4); Platelet Count Result 335 k/mm3 (150-375); Red Blood Count 4.85 M/mm3 (4.2-5.4); Red Cell Distribution Width 15.3 % (11.5-14.5); White Blood Count 7.6 K/mm3 (4.5-10.0)
[2023-07-11 19:53] LABS: Hemoglobin A1C 5.2 % (<5.7)
== END 2023-07-11 08:44 | disposition home or self-care (01) ==
LOC: ANHBWCLAB 08:44
PROVIDERS: PCP Nurse Practitioner Adult Health; Visit Provider Nurse Practitioner Adult Health
DX: Z13.9 Encounter for screening, unspecified (principal); E66.9 Obesity, unspecified
CPT/HCPCS: 36415; 80053; 80061; 83036; 84439; 84443; 85027

== ENCOUNTER 2024-05-05 13:46 | Outpatient (CLI) | payer BC, SELFPAY ==
--- NOTE | ~2024-05-05 | XR_ITS ---
EXAMINATION: XR knee RT 3V DATE: 05/05/2024 13:58 INDICATION: Right knee pain TECHNIQUE: Standing AP, lateral and sunrise views of the right knee were obtained COMPARISON: None. FINDINGS: Alignment is normal. No fracture. Joint spaces are normal. No no right knee joint effusion. Soft tis sues are unremarkable. IMPRESSION: 1. Negative right knee radiographs. Reviewed, dictated and finalized at location A. [employer]
== END 2024-05-05 13:47 | disposition home or self-care (01) ==
LOC: ANHBWCLAB 13:48 → ANHBWCIMG 13:51
PROVIDERS: PCP Nurse Practitioner Adult Health; Visit Provider Nurse Practitioner Adult Health
DX: M25.561 Pain in right knee (principal)
CPT/HCPCS: 73562

== ENCOUNTER 2024-07-20 12:09 | Outpatient (CLI) | payer BC, SELFPAY ==
--- NOTE | ~2024-07-20 | XR_ITS ---
Left ankle Technique: AP, oblique, and lateral views were obtained. Clinical History: Sprain Findings: No acute fracture or dislocation is seen. Osseous alignment is anatomic. Ankle mortise and other visualized joint spaces are preserved. Soft tissues are otherwise unremarkable. Impression: Unremarkable left ankle. Reviewed, dictated and finalized at location . Impression: Unremarkable left ankle.
--- OUTSIDE RECORDS SUMMARY | 2024-07-20 13:55 | XMS_ITS | Clinical Summary ---
Author Organization [facility] Address [address] [place] [address] Phone Care Team Providers Care Global Expansion Sales Director Name Role Phone Elpidio Connelly MD Unavailable Mac Esquivel DPM Unavailable [phone] Augusta Dunn MD Unavailable [phone] Allergies No known active allergies Medications diphenoxylate-a tropine (LOMOTIL) 2.5-0.025 MG Tablet Take 1 Tab by mouth 4 times daily as needed for Diarrhea. 90 Tab 1 0 Active Additional Information Patient not taking.Reported on 11/03/2019 Cetirizine HCl (ZYRTEC PO) Take by mouth. Act jonathan meclizine (ANTIVERT) 25 MG Tablet Take 1 Tab by mouth 3 times daily as needed for Dizziness. 30 Tab 0 Active Additional Information Patient not taking.Reported on 11/03/2019 Vit-Fe Fumarate-FA ( VITAMIN PO) Take by mouth. Act jonathan otherIndication s:GERD by Other route. Apple Cider Vinegar capsule Indications: GERD Active Omeprazole 20 MG Tablet Delayed Response Take 1 Tablet by mouth daily. 90 Tablet 1 1 Active Active Problems Problem Noted Date Diagnosed Date Irritable bowel syndrome with diarrhea 0 Migraine without status migrainosus, not intract able 12/20/2017 Cellulitis of left pinna 11/25/2017 Abscess, pinna, left 11/25/2017 Sinus tachycardia 07/10/2017 Anxiety 06/24/2017 Vertigo 06/14/2017 Tachyarrhythmia 06/14/2017 Near syncope 06/14/2017 Persistent hypersomnia 06/14/2017 Nasal obstruction without choanal atresia 2017 DNS (deviated nasal septum) 06/14/2017 Hypertrophy of inferior nasal turbinate 06/15/19 18 Malocclusion due to mouth breathing 06/14/2017 Acne vulgaris 04/12/2017 Skin lesion 03/27/2017 Mild recurrent major depression 02/20/2017 Adjustment reaction 02/20/2017 Synovitis of right ankle 12/28/2016 Pain and swelling of right ankle 12/28/2016 Contusion of right ankle 12/28/2016 Laryngopharyngeal reflux 11/19/2016 Pachyderma of larynx 11/19/2016 Globus pharyngeus 11/19/2016 PNAR (perennial non-allergic rhinitis) 7 Anxiety, generalized 06/30/2015 Paronychia of the right first toe Resolved Problems Problem Noted Date Diagnosed Date Resolved Date Right upper quadrant abdominal pain 05/13/2018 07/08/2019 Snoring 06/14/2017 05/13/2018 Immunizations Immunization Administration Dates Next Due Influenza Vaccine 01/22/2019 Influenza Vaccine greater than 3 yrs 01/15/2018, 11/10/2012 Influenza Vaccine less than 3 yrs 01/24/2016 Influenza Vaccine, Quadrivalent, PF 01/11/2020,1 Influenza, Seasonal, Injectable, Undefined 01/15,01/24/2016,11/10/2012 Pneumococcal Vaccine, Unspec ified Formulation 12/14/2010 TB Skin Test 11/19/2012,11/10/2012 Family History Medical History Relation Name Comments Cancer Father colon Cancer Maternal Grandfather rectal cancer, kidney cancer Diabetes Maternal Grandfather Hypertension Maternal Grandfather Cancer Maternal Grandmother skin Hypertension Maternal Grandmother Osteoarthritis Maternal Grandmother Diabetes Mother Heart Attack Mother Cancer Paternal Aunt colon and stom ach Cancer Paternal Grandfather colon Relation Name Status Comments Father Maternal Grandfather Maternal Grandmother Mother Paternal Aunt Paternal Grandfather Social History Tobacco Use Types Packs/Day Years Used Date Smoking Tobacco: Never Smokeless Tobacco: Never Tobacco Cessation:Counseling Given: No Alcohol Use Standard Drinks/Week Comments Yes 0 (1 standard drink = 0.6 oz pur e alcohol) PHQ-2 Answer Date Recorded Total Score - Questions 1-9 0 09/13 Sexually Active Control Partners Comments Yes Male Comments No Sex and Gender Information Value Date Recorded Sex Assigned at Not on file Legal Sex Female 11:21 PM CDT Gender Identity Not on file Sexual Orientation Not on file Occupation Industry Job Start Date Job End Date registered nurse Not on file Not on file Not on file Last Filed Vital Signs Vital Sign Reading Time Taken Comments Blood Pressure 102/80 10/19/2019 8:11 AM CDT Pulse 99 10/19/2019 8:11 AM CDT Temperature 36.5 C (97.7 F) 10/19/2019 8:11 AM CDT Respiratory Rate 16 10/19/2019 8:11 AM CDT Oxygen Saturation 100% 10/19/2019 8:11 AM CDT Inhaled Oxygen Concentration - - Weight 89.6 kg (197 lb 9.6 oz) 10/19/2019 8:11 A M CDT Height 157.5 cm (5' 2 ) 10/19/2019 8:11 AM CDT Body Mass Index 36.14 10/19/2019 8:11 AM CDT Plan of Treatment Health Maintenance Due Date Last Done Comments Hepatitis C Virus (HCV) Screening 1991 TdaP Immunization 1991 Hepatitis B Immunization (1 of 3 - 19+ 3-dose series) 2010 Pap Smear 06/04/2020 06/04/2017 Cervical Cancer Screening (CCS) 2021 HPV/Cotest 2021 Influenza Immunization (#1) 12/15/202312/15, 01/22/2019, 01/22/2019, Additional history exists SARS-COV-2 Immunization (2023- season) 2023 01/06/2021, 12/16/2020 Respiratory Syncytial Virus (RSV) Immunization (Adult) (1 - 1-dose 75+ series) 2066 Pneumococcal Immunization Combined Aged Out 12/14/2010 No longer eligible based on patient's age to complete this topic Meningococcal Immunization (ACWY) Aged Out No longer eligible based on patient's age to complete this topic Rotavirus Immunization Aged Out No lo nger eligible based on patient's age to complete this topic Procedures Procedure Name Priority Date/Time Associated Diagnosis Comments PATHOLOGY CYTOLOGY EDITING CLERK Routine 06/04/2017 from Last 3 Months or Most Recently Relevant to Health Maintenance Results * PATHOLOGY CYTOLOGY EDITING CLERK (06/04/2017) Specimen of unknown material (specimen) Augusta Dunn MD PATHOLOGY/CYTOLOGY OR DERABLES Final Result from Last 3 Months or Most Recently Relevant to Health Maintenance Insurance Care Teams Global Expansion Sales Director Relationship Specialty Start Date End Date Elpidio Connelly MD [address] [facility] [address] [facility] [address] [place] [address] Obstetrics & Gynecology 09/28/16 Mac Esquivel DPM [address] [facility] [address] [facility] [address] [place] [address] Consulting Physician Podiatry 12/28/16 Augusta uDnn MD [address] [place] [address] Consulting Physician Obstetrics & Gynecology 09/05/18
--- OUTSIDE RECORDS SUMMARY | 2024-07-20 13:55 | XMS_ITS | Clinical Summary ---
Author Organization [employer] [address] [place] [address] [place] [phone] Care Team Providers Care Endo Tech Name Role Phone Unavailable Primary Care Provider Unavailabl e Immunizations Immunization Administration Dates Next Due Influenza Seasonal Unspecifi ed Formulation IM 01/31/2024,02/07/2023,02/07/2023,2021 Social History Tobacco Use Types Packs/Day Years Used Date Smoking Tobacco: Never Assessed Comments Unknown Sex and Gender Information Value Date Recorded Sex Assigned at Not on file Legal Sex Female 3:53 PM CDT Gender Identity Not on file Sexual Orientation Not on file Plan of Treatment Health Maintenance Due Date Last Done Comments DTAP/TDAP/TD VACCINES (1 - Tdap) 2010 HEPATITIS B VACCINES (1 of 3 - 19+ 3-dose series) 2010 HPV/Cotest (21-29) 2012 HPV/Cotest (30-65) 2021 CERVICAL CANCER SCREENING 07/24/2024 PAP SMEAR 07/24/2024 07/24/2021 INFLUENZA VACCINE Completed 01/31/2024, , 02/07/2023, Additional history exists HPV VACCINES Aged Out No longer eligi ble based on patient's age to complete this topic
== END 2024-07-20 12:10 | disposition home or self-care (01) ==
LOC: ANHBWCIMG 12:10
PROVIDERS: PCP Nurse Practitioner Adult Health; Visit Provider Orthopaedic Surgery
DX: M25.572 Pain in left ankle and joints of left foot (principal)
CPT/HCPCS: 73610